=== PATIENT | male | born 1970 | race African-American/Black ===

== ENCOUNTER 2020-02-23 09:12 | Emergency (ER) | payer MEDICAID ==
[~2020-02-23] VITALS: Ht 172.7 cm; Wt 77.3 kg
[2020-02-23 10:15] VITALS: BP 133/89
[2020-02-23] MEDS ORDERED: HYDROCODONE/ACETAMINOPHEN 5-325 MG TABLET PO ONE (10:30)
[2020-02-23] MEDS ORDERED: CLINDAMYCIN HCL 150 MG CAPSULE PO ONE (10:30)
== END 2020-02-23 12:24 | disposition home or self-care (01) ==
LOC: EMS 09:18
DX: K02.9 Dental caries, unspecified (principal); F17.210 Nicotine dependence, cigarettes, uncomplicated; F12.90 Cannabis use, unspecified, uncomplicated
CPT/HCPCS: 99406